=== PATIENT | female | born 1940 | race Caucasian/White ===

== ENCOUNTER 2019-01-09 11:15 | Outpatient (CLI) | payer MEDICARE, BC ==
--- NOTE | 2019-01-09 11:51 | MMO ---
Bilateral MAMMO Bilat Screen [facility]. CLINICAL HISTORY: Patient is 78 years old and is seen for screening. The patient has the following family history of breast cancer: cousin female, at age 33. The patient has no personal history of cancer. VIEWS: The views performed were: bilateral craniocaudal with tomosynthesis and bilateral mediolateral oblique with tomosynthesis. FILMS COMPARED: The present examination has been compared to prior imaging studies performed at [facility] on 10/09/2013, 11/19/2014, 12/01/2015 and 12/05/2016. MAMMOGRAM FINDINGS: There are scattered fibroglandular densities. There are no suspicious masses, suspicious calcifications, or new areas of architectural distortion. IMPRESSION: THERE IS NO MAMMOGRAPHIC EVIDENCE OF MALIGNANCY. A ROUTINE FOLLOW-UP MAMMOGRAM IN 1 YEAR IS RECOMMENDED. THE RESULTS OF THIS EXAM WERE SENT TO THE PATIENT. ACR BI-RADS Category 1 - Negative MAMMOGRAPHY NOTE: 1. A negative mammogram report should not delay a biopsy if a dominant of clinically suspicious mass is present. 2. Approximately 10% to 15% of breast cancers are not detected by mammography. 3. Adenosis and dense breasts may obscure an underlying neoplasm.
== END 2019-01-09 11:16 | disposition home or self-care (01) ==
LOC: BICMAMMO 11:15
PROVIDERS: ATTEND Obstetrics & Gynecology
DX: Z12.31 Encounter for screening mammogram for malignant neoplasm of breast (principal); Z80.3 Family history of malignant neoplasm of breast
CPT/HCPCS: 77063; 77067

== ENCOUNTER 2019-09-26 13:10 | Outpatient (CLI) | payer MEDICARE, BC ==
--- NOTE | 2019-09-26 14:12 | CT ---
CT chest noncontrast low-dose screening HISTORY: Tobacco abuse. Former smoker. Dyspnea. FINDINGS: Lungs are hyperinflated with scattered areas of mild emphysematous bullae and peripheral in terstitial scarring. A 0.3 cm solid nodule approaches the pleura at the apex of the superior segment right lower lobe. There is a 0.4 cm noncalcified nodule within the anterolateral aspect of th e right lower lobe. At the far anterior margin of the right lower lobe, a 0.3 cm noncalcified nodule underlies the pleura. No aggressive lesion is apparent. No pleural fluid or pneumothorax. There is calcification within the arterial structures most pronounced at the renal artery origins. Metallic shrapnel in the right lateral chest wall with deformity of the adjacent rib. Lack of contrast limits evaluation of the soft tissues. No mediastinal adenopathy is evident. Minimal pericardial thickening. Degenerative changes of the thoracic spine. IMPRESSION: Tiny nonspecific right lower lobe nodules. Lung RADS category 2. Benign. Suggest routine screening. Atherosclerosis. Emphysematous changes of the lungs. Metallic shrapnel and old injury of the right lateral chest wall.
== END 2019-09-26 13:11 | disposition home or self-care (01) ==
LOC: BICCT 13:10
DX: Z87.891 Personal history of nicotine dependence (principal); R06.00 Dyspnea, unspecified; R06.89 Other abnormalities of breathing; R91.8 Other nonspecific abnormal finding of lung field; J43.9 Emphysema, unspecified; I70.1 Atherosclerosis of renal artery
CPT/HCPCS: G0297

== ENCOUNTER 2021-04-04 18:30 | Outpatient (CLI) | payer MEDICARE, BC | END 2021-04-04 18:31 | disposition home or self-care (01) | LOC: SLEEPLAB 18:30 | PROVIDERS: ATTEND Otolaryngology Plastic Surgery within the Head & Neck | DX: R06.83 Snoring (principal); G47.00 Insomnia, unspecified | CPT/HCPCS: 95806 ==

== ENCOUNTER 2022-01-25 09:50 | Observation (INO) | payer MEDICARE, BC ==
[2022-01-25 10:24] LABS: #Basophils 0.1 thou/uL (0.0-0.2); #Eosinphils 0.4 thou/uL (0.0-0.7); #Monocytes 0.4 thou/uL (0.11-0.59); #Neutrophils 3.8 thou/uL (1.40-6.50); %Basophils 1.5 % (0.0-1.0); %Eosinophils 6.4 % (0.0-10.0); %Lymphocytes 29.5 % (21.0-51.0); %Monocytes 6.2 % (0.0-10.0); %Neutrophils 56.3 % (42.0-75.0); Mean Corpuscular HGB CONC 32.5 g/dL (32.0-36.0); Mean Corpuscular Hemoglobin 29.7 pg (27.0-31.0); Mean Corpuscular Volume 91.4 fL (78.0-98.0); Mean Platelet Volume 7.9 fL (7.4-10.4); Platelet Count 268 thou/uL (130-400); RBC Distribution Width 13.2 % (11.5-14.5); Red Blood Cell (RBC) Count 4.71 mill/uL (4.20-5.40); White Blood Cell (WBC) Count 6.8 thou/uL (4.8-10.8)
[2022-01-25 10:43] LABS: ALT (SGPT) 19 U/L (8-55); AST (SGOT) 18 U/L (5-34); Albumin 4.4 g/dL (3.4-4.8); Alkaline Phosphatase 75 U/L (40-110); Anion Gap 11 mmol/L (10-20); BUN (Urea Nitrogen) 10 mg/dL (9.8-20.1); Bilirubin, Total 0.7 mg/dL (0.2-1.2); Calc. Creatinine Clearance 0 mL/min (70-130); Calcium 9.8 mg/dL (7.8-10.44); Carbon Dioxide 29 mmol/L (23-31); Chloride 104 mmol/L (98-107); Estimated GFR 84; Globulin 2.8 g/dL (2.4-3.5); Glucose 102 mg/dL (83-110); Potassium 4.3 mmol/L (3.5-5.1); Protein, Total 7.2 g/dL (5.8-8.1); Sodium 140 mmol/L (136-145)
[2022-01-25] MEDS ORDERED: Bisacodyl 5 MG TAB PO PRN (12:21)
[2022-01-25] MEDS ORDERED: Senokot S 8.6-50 MG TAB PO PRN (12:21)
[2022-01-25] MEDS ORDERED: Ondansetron ODT 4 MG TAB PO PRN (12:21)
[2022-01-25] MEDS ORDERED: Acetaminophen 325 MG TAB PO PRN (12:21)
[2022-01-25] MEDS ORDERED: Aspirin 325 mg Enteric Coated Tablet PO SCH (13:00)
[2022-01-25] MEDS ORDERED: Aspirin 325 MG TAB ONE (14:19)
[2022-01-25 14:26] LABS: SARS-CoV-2 NAA Rapid Test Not Detected (NotDetected)
[2022-01-25 15:15] LABS: Troponin I Less than 0.010 ng/mL (< 0.028)
[2022-01-26 06:03] LABS: #Basophils 0.1 thou/uL (0.0-0.2); #Eosinphils 0.4 thou/uL (0.0-0.7); #Lymphocytes 2.5 thou/uL (1.20-3.40); #Monocytes 0.5 thou/uL (0.11-0.59); %Basophils 1.5 % (0.0-1.0); %Lymphocytes 38.2 % (21.0-51.0); %Neutrophils 46.3 % (42.0-75.0); Hemoglobin 13.4 g/dL (12.0-16.0); Mean Corpuscular HGB CONC 32.4 g/dL (32.0-36.0); Mean Corpuscular Volume 92.7 fL (78.0-98.0); Platelet Count 237 thou/uL (130-400); RBC Distribution Width 13.1 % (11.5-14.5); Red Blood Cell (RBC) Count 4.45 mill/uL (4.20-5.40); White Blood Cell (WBC) Count 6.5 thou/uL (4.8-10.8)
[2022-01-26 06:30] LABS: Anion Gap 11 mmol/L (10-20); BUN (Urea Nitrogen) 9 mg/dL (9.8-20.1); Calc. Creatinine Clearance 0 mL/min (70-130); Calcium 9.1 mg/dL (7.8-10.44); Carbon Dioxide 27 mmol/L (23-31); Cardiac Risk 3.1 (Less than 4.5); Chloride 105 mmol/L (98-107); Cholesterol 144 mg/dl (< 200 Desired); Estimated GFR 90; Glucose 93 mg/dL (83-110); HDL Cholesterol 47 mg/dL (>60 Neg Risk); LDL Cholesterol, Calculated 80 mg/dL; Potassium 3.8 mmol/L (3.5-5.1); Sodium 139 mmol/L (136-145); Triglycerides 84 mg/dL (Less than 150)
[2022-01-26] MEDS ORDERED: Enoxaparin Sodium 30 MG/0.3 ML SYRINGE SC SCH (09:00)
[2022-01-26] MEDS ORDERED: Aspirin 81 mg Enteric Coated Tablet PO SCH (09:00)
[2022-01-26 09:27] VITALS: BMI 28.8
[2022-01-26 09:29] VITALS: BP 146/66; TEMP 98.3
[2022-01-26] MEDS ORDERED: Aspirin Chewable 81 MG TAB ONE (09:31)
[2022-01-26] MEDS ORDERED: Enoxaparin Sodium 30 MG/0.3 ML SYRINGE ONE ×2 (09:31→09:33)
[2022-01-27] MEDS ORDERED: Enoxaparin Sodium 40 MG/0.4 ML SYRINGE SC SCH (09:00)
== END 2022-01-26 17:00 | disposition home or self-care (01) ==
LOC: ERS 09:50 → ERHOLD 11:33
PROVIDERS: ADMIT Internal Medicine; ATTEND Internal Medicine
DX: I63.9 Cerebral infarction, unspecified (principal); R47.81 Slurred speech; E78.5 Hyperlipidemia, unspecified; Q04.6 Congenital cerebral cysts; J45.909 Unspecified asthma, uncomplicated; I37.1 Nonrheumatic pulmonary valve insufficiency; Z87.891 Personal history of nicotine dependence; Z79.899 Other long term (current) drug therapy; Z88.0 Allergy status to penicillin; Z20.822 Contact with and (suspected) exposure to COVID-19
CPT/HCPCS: 70450; 70553; 80048; 80061; 83036; 84484 ×2; 85025; 93005; 93306; 93880; 94760; 99285; U0002; 36415; 80053; 84443; J1650

== ENCOUNTER 2022-02-08 10:38 | Outpatient (CLI) | payer MEDICARE, BC ==
[2022-02-08 11:46] LABS: #Basophils 0.1 10x3/uL (0.0-0.2); #Eosinphils 0.3 10x3/uL (0.0-0.5); #Monocytes 0.5 10x3/uL (0.0-1.1); #Neutrophils 4.8 10x3/uL (1.5-8.4); %Basophils 1.2 % (0.0-2.0); %Eosinophils 4.4 % (0.0-6.0); %Monocytes 6.5 % (0.0-10.0); %Neutrophils 61.6 % (40.0-75.0); Hemoglobin 13.7 g/dL (12.0-15.5); Mean Corpuscular HGB CONC 34.3 g/dL (32.0-36.0); Mean Corpuscular Hemoglobin 29.7 pg (27.0-33.0); Mean Corpuscular Volume 86.4 fl (81.6-98.3); Mean Platelet Volume 10.2 fl (7.4-10.4); Platelet Count 298 10x3/uL (150-450); RBC Distribution Width 14.3 % (11.5-14.5); Red Blood Cell (RBC) Count 4.62 10x6/uL (3.90-5.03); White Blood Cell (WBC) Count 7.8 10x3/uL (3.5-10.5)
[2022-02-08 12:13] LABS: ALT (SGPT) 19 U/L (8-55); AST (SGOT) 20 U/L (5-34); Albumin 4.5 g/dL (3.4-4.8); Alkaline Phosphatase 79 U/L (40-110); Anion Gap 10 mmol/L (10-20); BUN (Urea Nitrogen) 12 mg/dL (9.8-20.1); Bilirubin, Total 0.7 mg/dL (0.2-1.2); Calc. Creatinine Clearance 0 mL/min (70-130); Calcium 10.1 mg/dL (7.8-10.44); Carbon Dioxide 32 mmol/L (23-31); Chloride 101 mmol/L (98-107); Estimated GFR 77; Globulin 2.4 g/dL (2.4-3.5); Glucose 87 mg/dL (83-110); Potassium 4.7 mmol/L (3.5-5.1); Protein, Total 6.9 g/dL (5.8-8.1); Sodium 138 mmol/L (136-145)
== END 2022-02-08 10:39 | disposition home or self-care (01) ==
LOC: LABBT 10:38
PROVIDERS: ATTEND Internal Medicine Cardiovascular Disease
DX: Z01.812 Encounter for preprocedural laboratory examination (principal); Z20.822 Contact with and (suspected) exposure to COVID-19
CPT/HCPCS: 80053; 85025; 87811

== ENCOUNTER → 2022-02-13 | Day surgery (SDC) | payer MEDICARE, BC ==
[2022-02-09 11:51] VITALS: BMI 28.7
[~2022-02-13] MED LIST: PROPOFOL 200 MG/20 ML VIAL ONE
== END | disposition home or self-care (01) ==
LOC: SDC 05:57
PROVIDERS: ATTEND Internal Medicine Cardiovascular Disease
PROC: B246ZZ4 Ultrasonography of Right and Left Heart, Transesophageal (ICD-10-PCS; principal; 2022-02-13)
DX: Q21.1 Atrial septal defect (principal); I65.21 Occlusion and stenosis of right carotid artery; Z86.73 Personal history of transient ischemic attack (TIA), and cerebral infarction without residual deficits; Z87.891 Personal history of nicotine dependence; Z79.01 Long term (current) use of anticoagulants; Z79.899 Other long term (current) drug therapy; Z88.0 Allergy status to penicillin
CPT/HCPCS: 93312; J2704

== ENCOUNTER 2024-01-11 07:31 | Outpatient (CLI) | payer MEDICARE | END 2024-01-11 07:32 | disposition home or self-care (01) | LOC: CT 07:31 | PROVIDERS: ATTEND Internal Medicine | DX: Z12.2 Encounter for screening for malignant neoplasm of respiratory organs (principal) | CPT/HCPCS: 71271 ==